=== PATIENT | male | born 1975 | race Native Hawaiian/Other Pacific Islander ===

== ENCOUNTER 2022-09-25 11:34 | Emergency (ER) | payer OTHER, MEDICARE ==
[2022-09-25 12:28] VITALS: BP 106/74; PULSE 94; RESP 18; TEMP 97.6
[2022-09-25] MEDS ORDERED: SODIUM CHLORIDE 0.9% 1,000 ML IV STA (13:49)
[2022-09-25] MEDS ORDERED: MORPHINE SULFATE 4 MG/ML SYRINGE IVP STA (13:50)
[2022-09-25 14:38] LABS: ALT 19 U/L (4-49); AST 32 U/L (17-59); African American GFR (CKD) >90 (>60 ml/min/1.73 sqM); Albumin 4.4 g/dL (3.5-5.0); Alkaline Phosphatase 119 U/L (38-126); Anion Gap 6 mmol/L; Anisocytosis Slight; Blood Urea Nitrogen 12 mg/dL (9-20); Calcium 9.3 mg/dL (8.4-10.2); Carbon Dioxide 26 mmol/L (22-30); Chloride 107 mmol/L (98-107); Glucose 103 mg/dL (74-99); HCT 40.8 % (39.0-53.0); HGB 13.2 gm/dL (13.0-17.5); Hypochromasia Slight; MCH 28.4 pg (25.0-35.0); MCHC 32.5 g/dL (31.0-37.0); MCV 87.6 fL (80.0-100.0); Mean Platelet Volume 9.7; Non-African American GFR(CKD) >90 (>60 ml/min/1.73 sqM); Platelet Count 528 k/uL (150-450); Potassium 5.2 mmol/L (3.5-5.1); RBC 4.66 m/uL (4.30-5.90); RDW 19.1 % (11.5-15.5); Sodium 139 mmol/L (137-145); Total Bilirubin 0.5 mg/dL (0.2-1.3); Total Protein 7.5 g/dL (6.3-8.2); WBC 11.5 k/uL (3.8-10.6)
[2022-09-25] MEDS ORDERED: KETOROLAC 15 MG/ML 1 ML VIAL IVP STA (15:06)
[2022-09-25 15:10] LABS: Basophils # (M) 0.12 k/uL (0-0.2); Eosinophils # (M) 0.12 k/uL (0-0.7); Lymphocytes # (M) 3.22 k/uL (1.0-4.8); Monocytes # (M) 0.69 k/uL (0-1.0); Neutrophils # (M) 7.59 k/uL (1.3-7.7); Neutrophils % (M) 66 %; Nucleated Red Blood Cells 0 /100 WBC (0-0); Total Cells Counted 200
[2022-09-25 15:12] LABS: Target Cells Present
[2022-09-25] MEDS ORDERED: CEPHALEXIN 500 MG CAP PO STA (16:11)
--- NOTE | 2022-09-25 16:34 | XR ---
EXAMINATION TYPE: XR femur RT DATE OF EXAM: 09/25/2022 4:21 PM INDICATION: Patient age:Male; 47 years old; Reason for study: s/p AKA, pain; COMPARISON: None TECHNIQUE: The right femur was examined in AP and lateral projections. FINDINGS: Post surgical changes of the distal femur with prosthesis and cerclage wires. Hardware appe ars intact. Osseous fragment adjacent to the distal aspect of the right femur laterally which appears well-corticated and likely remote fragment. No acute fracture or dislocation. No soft tissue swellin g. No soft tissue gas. IMPRESSION: No acute osseous pathology. Postsurgical changes of the distal femur with prosthesis and cerclage wires. Hardware appears intact.
[2022-09-25] MEDS ORDERED: ACET/COD 300 MG/30 MG STARTER PACK 6 TAB BTL PO STA (16:55)
--- NOTE | 2022-09-25 16:59 | ED ---
Extremity Problem HPI - General Chief complaint: Extremity Problem,Nontraumatic Stated complaint: Leg Infection from Prev. Amputation Time Seen by Provider: 09/25/22 13:30 Source: patient Mode of arrival: wheelchair Limitations: no limitations - History of Present Illness Initial comments: Patient is a 47-year-old male who presents to the emergency department with a chief complaint of right leg pain. Patient had [id number] amputation performed 6-8 months ago in [place] where he lives. Patient reports severe pain in his right leg near the amputation which began yesterday. Taking Tylenol and Motrin with little relief. He also reports redness in this area. He denies swelling. Denies fever, chills, nausea, vomiting. He does mention recent upper respiratory infection. States he wears appropriate prosthetic stockings. - Related Data Home Medications Medication Instructions Recorded Confirmed Acetaminophen Tab [Tylenol Tab] 1,000 mg PO Q6H PRN 09/25/22 09/25/22 Ibuprofen [Motrin Ib] 400 mg PO Q6H PRN 09/25/22 09/25/22 Previous Rx's Medication Instructions Recorded Cephalexin [Keflex] 500 mg PO Q6HR 1 Days #20 cap 09/25/22 HYDROcodone/APAP 7.5-325MG [[place] 1 tab PO Q4HR PRN 3 Days #18 tab 09/25/22 7.5-325] Ketorolac [Toradol] 10 mg PO Q8HR #15 tab 09/25/22 Allergies Allergy/AdvReac Type Severity Reaction Status Date / Time No Known Allergies Allergy Verified 09/25/22 15:07 Review of Systems ROS Statement: Those systems with pertinent positive or pertinent negative responses have been documented in the HPI. ROS Other: All systems not noted in ROS Statement are negative. Past Medical History Additional Past Medical History / Comment(s): sepsis History of Any Multi-Drug Resistant Organisms: None Reported Additional Past Surgical History / Comment(s): amputation, spleenectomy Past Psychological History: No Psychological Hx Reported Smoking Status: Current every day smoker Past Alcohol Use History: None Reported Past Drug Use History: None Reported General Exam Limitations: no limitations General appearance: alert, in no apparent distress Head exam: Present: atraumatic, normocephalic, normal inspection Respiratory exam: Present: normal lung sounds bilaterally. Absent: respiratory distress, wheezes, rales, rhonchi, stridor Cardiovascular Exam: Present: regular rate, normal rhythm, normal heart sounds. Absent: systolic murmur, diastolic murmur, rubs, gallop, clicks Extremities exam: Present: other (Mild erythema to right femur without swelling, warmth. Blanching present) Neurological exam: Present: alert, oriented X3, CN II-XII intact Psychiatric exam: Present: normal affect, normal mood Skin exam: Present: warm, dry, intact, normal color. Absent: rash Course Vital Signs 09/25/22 12:25 Temperature 97.6 F Pulse Rate 94 Respiratory 18 Rate Blood Pressure 106/74 O2 Sat by Pulse 98 Oximetry Medical Decision Making - Medical Decision Making Was pt. sent in by a medical professional or institution? @ -No Did you speak to anyone other than the patient for history? @ -No Did you review nursing and triage notes? @ -Yes, I agree Were old charts reviewed? @ -NA Differential Diagnosis? @ -cellulitis, phantom pain, contact dermatitis EKG interpreted by me (3pts min.)? @ -NA X-rays interpreted by me (1pt min.)? @ -Yes, right femur x-ray negative for acute process CT interpreted by me (1pt min.)? @ -NA U/S interpreted by me (1pt. min.)? @ -NA What testing was considered but not performed? (CT, X-rays, U/S, labs)? Why? @ NA What meds were considered but not given? Why? @ -No Did you discuss the management of the patient with other professionals? @ -Yes, I discussed this case with my attending Dr. Hernandez Did you reconcile home meds? @ -NA Was smoking cessation discussed for >3mins.? @ -NA Was critical care preformed (if so, how long)? @ -NA Were there social determinants of health that impacted care today? How? (Homelessness, low income, unemployed, alcoholism, drug addiction, transportation, low edu. Level, literacy, decrease access to med. care, fpc, rehab)? @ -No Was there de-escalation of care discussed even if they declined? (Discuss DNR or withdrawal of care, Hospice)? @ -No What co-morbidities impacted this encounter? (DM, HTN, Smoking, COPD, CAD, Cancer, CVA, Hep., AIDS, mental health diagnosis, sleep apnea, morbid obesity)? @ -NA Was patient admitted / discharged? @ -This is a 47-year-old male with right [id number] amputation presenting with right lower extremity pain. Physical exam reveals a possible early cellulitis. No leukocytosis, no fever. Right femur x-ray negative for acute process. Pain controlled in the emergency department. Patient will be discharged with Keflex Undiagnosed new problem with uncertain prognosis? @ -No Drug Therapy requiring intensive monitoring for toxicity (Heparin, Nitro, Insulin, Cardizem)? @ -No Were any procedures done? @ -No Diagnosis/symptom? @ -RLE pain Acute, or Chronic, or Acute on Chronic? @ -acute Uncomplicated (without systemic symptoms) or Complicated (systemic symptoms)? @ -Uncomplicated Side effects of treatment? @ -No Exacerbation, Progression, or Severe Exacerbation] @ -NA Poses a threat to life or bodily function? @ -No - Lab Data Result diagrams: 09/25/22 13:53 09/25/22 13:53 Lab Results 09/25/22 09/25/22 09/25/22 Range/Units 13:53 13:53 13:53 WBC 11.5 H (3.8-10.6) k/uL RBC 4.66 (4.30-5.90) m/uL Hgb 13.2 (13.0-17.5) gm/dL Hct 40.8 (39.0-53.0) % MCV 87.6 (80.0-100.0) fL MCH 28.4 (25.0-35.0) pg MCHC 32.5 (31.0-37.0) g/dL RDW 19.1 H (11.5-15.5) % Plt Count 528 H (150-450) k/uL MPV 9.7 Neutrophils % (Manual) 66 % Lymphocytes % (Manual) 28 % Monocytes % (Manual) 6 % Eosinophils % (Manual) 1 % Basophils % (Manual) 1 % Neutrophils # (Manual) 7.59 (1.3-7.7) k/uL Lymphocytes # (Manual) 3.22 (1.0-4.8) k/uL Monocytes # (Manual) 0.69 (0-1.0) k/uL Eosinophils # (Manual) 0.12 (0-0.7) k/uL Basophils # (Manual) 0.12 (0-0.2) k/uL Nucleated RBCs 0 (0-0) /100 WBC Manual Slide Review Performed Hypochromasia Slight Anisocytosis Slight Target Cells Present Sodium 139 (137-145) mmol/L Potassium 5.2 H (3.5-5.1) mmol/L Chloride 107 (98-107) mmol/L Carbon Dioxide 26 (22-30) mmol/L Anion Gap 6 mmol/L BUN 12 (9-20) mg/dL Creatinine 0.80 (0.66-1.25) mg/dL Est GFR (CKD-EPI)AfAm >90 (>60 ml/min/1.73 sqM) Est GFR (CKD-EPI)NonAf >90 (>60 ml/min/1.73 sqM) Glucose 103 H (74-99) mg/dL Plasma Lactic Acid Rajan 0.9 (0.7-2.0) mmol/L Calcium 9.3 (8.4-10.2) mg/dL Total Bilirubin 0.5 (0.2-1.3) mg/dL AST 32 (17-59) U/L ALT 19 (4-49) U/L Alkaline Phosphatase 119 (38-126) U/L Total Protein 7.5 (6.3-8.2) g/dL Albumin 4.4 (3.5-5.0) g/dL Influenza Type A (PCR) (Not Detectd) Influenza Type B (PCR) (Not Detectd) RSV (PCR) (Not Detectd) SARS-CoV-2 (PCR) (Not Detectd) 09/25/22 Range/Units 13:53 WBC (3.8-10.6) k/uL RBC (4.30-5.90) m/uL Hgb (13.0-17.5) gm/dL Hct (39.0-53.0) % MCV (80.0-100.0) fL MCH (25.0-35.0) pg MCHC (31.0-37.0) g/dL RDW (11.5-15.5) % Plt Count (150-450) k/uL MPV Neutrophils % (Manual) % Lymphocytes % (Manual) % Monocytes % (Manual) % Eosinophils % (Manual) % Basophils % (Manual) % Neutrophils # (Manual) (1.3-7.7) k/uL Lymphocytes # (Manual) (1.0-4.8) k/uL Monocytes # (Manual) (0-1.0) k/uL Eosinophils # (Manual) (0-0.7) k/uL Basophils # (Manual) (0-0.2) k/uL Nucleated RBCs (0-0) /100 WBC Manual Slide Review Hypochromasia Anisocytosis Target Cells Sodium (137-145) mmol/L Potassium (3.5-5.1) mmol/L Chloride (98-107) mmol/L Carbon Dioxide (22-30) mmol/L Anion Gap mmol/L BUN (9-20) mg/dL Creatinine (0.66-1.25) mg/dL Est GFR (CKD-EPI)AfAm (>60 ml/min/1.73 sqM) Est GFR (CKD-EPI)NonAf (>60 ml/min/1.73 sqM) Glucose (74-99) mg/dL Plasma Lactic Acid Rajan (0.7-2.0) mmol/L Calcium (8.4-10.2) mg/dL Total Bilirubin (0.2-1.3) mg/dL AST (17-59) U/L ALT (4-49) U/L Alkaline Phosphatase (38-126) U/L Total Protein (6.3-8.2) g/dL Albumin (3.5-5.0) g/dL Influenza Type A (PCR) Not Detected (Not Detectd) Influenza Type B (PCR) Not Detected (Not Detectd) RSV (PCR) Not Detected (Not Detectd) SARS-CoV-2 (PCR) Not Detected (Not Detectd) Disposition Clinical Impression: Above knee amputation of right lower extremity, Right leg pain Disposition: HOME SELF-CARE Condition: Good Instructions (If sedation given, give patient instructions): Cellulitis (ED) Additional Instructions: Take antibiotic as directed. Save [place] for severe pain. Return to the emergency department if you experience new, concerning, or worsening symptoms. Prescriptions: Cephalexin [Keflex] 500 mg PO Q6HR 1 Days #20 cap HYDROcodone/APAP 7.5-325MG [[place] 7.5-325] 1 tab PO Q4HR PRN 3 Days #18 tab PRN Reason: Pain Ketorolac [Toradol] 10 mg PO Q8HR #15 tab Is patient prescribed a controlled substance at d/c from ED?: No Referrals: None,Stated [Primary Care Provider] - 1-2 days Time of Disposition: 17:02
== END 2022-09-25 17:13 | disposition home or self-care (01) ==
LOC: EC 11:34
DX: Z89.611 Acquired absence of right leg above knee (principal); F17.200 Nicotine dependence, unspecified, uncomplicated; Z20.822 Contact with and (suspected) exposure to COVID-19
CPT/HCPCS: 36415; 80053; 83605; 85025; 87636; 73552; 99284; 96374; 96375; 96361; J2270; J1885